=== PATIENT | female | born 1980 | race Caucasian/White ===

== ENCOUNTER 2017-05-30 13:34 | Emergency (ER) | payer OTHER ==
[2017-05-30 14:07] VITALS: BP 132/96
--- NOTE | 2017-05-30 14:48 | ED Physician Documentation ---
Upper Respiratory Symptoms - HPI Stated Complaint: Cough/Congestion Chief Complaint: Cough/ Upper Respiratory Additional Information: cough and congestion past 5 days after flu vaccine. no fever chills n/e or diarrhea feels fairly good. cough prod greenish now whitish material---otc meds = no help Onset: days ago (5) Duration: intermittent episodes Context: denies: recent foreign travel Severity: moderate Associated Symptoms: runny nose. denies: fever, chills, sweating, earache Worsened by Deep Breath: No - ROS CONST/EYES: denies: weakness CVS/RESP: none GI/: none NEURO/PSYCH: denies: fainting, dizziness - PAST HX Lung Disease: none PE Risk Factors: none Surgeries/Procedures: cholecystectomy Allergies/Adverse Reactions: Allergies Allergy/AdvReac Type Severity Reaction Status Date / Time No Known Allergies Allergy Verified 05/30/17 13:48 Home Medications: Ambulatory Orders Medication Instructions Recorded traMADol HCL [Ultram] 50 mg PO Q4H PRN #18 tablet 06/02/16 - SOCIAL HX Smoking History: greater than 1 pack/day Alcohol Use: none Drug Use: none - FAMILY HX Family History: no significant history - VITAL SIGNS Vital Signs: Vital Signs Temp Pulse Resp BP Pulse Ox 98.1 F 88 18 136/80 96 05/30/17 14:00 05/30/17 14:00 05/30/17 14:00 05/30/17 14:00 05/30/17 14:00 - REVIEWED ASSESSMENTS Nursing Assessment Reviewed: Yes Vitals Reviewed: Yes Upper Respiratory Symptoms - EXAM General Appearance: mild distress EENT: eyes nml inspection, nml ENT inspection, conjunctival erythema (slight). No: pale conjunctivae Neck: normal inspection Respiratory: no resp. distress, breath sounds nml Abdomen: non-tender CVS: reg rate & rhythm, heart sounds normal Skin: color nml, no rash, warm,dry. No: cyanosis, diaphoresis, pallor, rash Extremities: non-tender Neuro/Psych: oriented x3 Discharge Clincal Impression: virazl resp infection, vs rxn to flu vaccine Referrals: Lisa Downs [Primary Care Provider] - 2 Days Comments: home claritin or ranitidine plus xs water bal nutrition - f/u w/pcp prn Condition: Good Disposition: 01 HOME, SELF-CARE Decision to Admit: NO Decision Time: 14:32
== END 2017-05-30 14:00 | disposition home or self-care (01) ==
LOC: ED 13:34
DX: J98.8 Other specified respiratory disorders (principal)
CPT/HCPCS: 99283

== ENCOUNTER 2017-09-25 21:32 | Emergency (ER) | payer OTHER ==
--- NOTE | 2017-09-25 21:47 | ED Physician Documentation ---
General Adult - HISTORIAN Historian: patient - HPI Stated Complaint: sore throat and cough Chief Complaint: Sore Throat Onset: other (3 days ) Timing: worse Severity: mild Further Comments: yes (she reports that she has had issues with sinus pain and pressure and she was treated with Augmentin and she reports she did feel better (this was about 2 weeks ago) she states that she had return of sinus drainge, sore throat and cough after 3 days of antibitoic completion. Denies a fever. She has been trying OTC meds. Son has had strep in last week.) Last known Well Code/Unknown Code: Unknown - ROS CONST: recent illness EYES/ENT: none CVS/RESP: shortness of breath, cough GI/: denies: vomiting, nausea MS/SKIN/LYMPH: none NEURO/PSYCH: headache. denies: fainting, dizziness, tingling, numbness - PAST HX Past History: none Other History: none Surgeries/Procedures: other (Gallbladder cesctions x 2 ) Immunizations: UTD Allergies/Adverse Reactions: Allergies Allergy/AdvReac Type Severity Reaction Status Date / Time No Known Allergies Allergy Verified 09/25/17 22:37 Home Medications: Ambulatory Orders Medication Instructions Recorded Cholecalciferol [Vitamin D-3] 1,000 unit PO DAILY 09/25/17 Nabumetone [Relafen] 500 mg PO DIRECTED PRN 09/25/17 - SOCIAL HX Smoking History: cigarettes Alcohol Use: none Drug Use: none - FAMILY HX Family History: No - VITAL SIGNS Vital Signs: Vital Signs Temp Pulse Resp BP Pulse Ox 136/80 05/30/17 14:00 - REVIEWED ASSESSMENTS Nursing Assessment Reviewed: Yes Vitals Reviewed: Yes Progress - Progress Progress: 2245: Lung sound with decrease wheeze post duoneb. Greater inspiratory volume. DG ED Results Lab/Radiology - Radiology Radiology Impressions: PA and lateral chest Clinical history: COUGH/CONGESTION/SORE THROAT Findings: Examination of the chest and PA and lateral views with no prior films for comparison demonstrates the lungs to be clear. Cardiovascular and mediastinal silhouettes are within normal limits. Bony thorax is intact. Impression: 1. No active disease. Electronically signed on Sep 25, 2017 10:35:06 PM GLYCERIN OPERATOR by: Duane Zheng General Adult Physical Exam - PHYSICAL EXAM GENERAL APPEARANCE: no distress EENT: eye inspection normal, pharyngeal erythema, abnormal TM, TM erythema NECK: normal inspection RESPIRATORY: no resp distress, chest non-tender, wheezes CVS: reg rate & rhythm, heart sounds normal, equal pulses, no murmur ABDOMEN: soft, normal bowel sounds BACK: normal inspection EXTREMITIES: non-tender, normal range of motion, no evidence of injury, no edema NEURO: oriented X3, CN's nml as tested, motor nml, sensation nml, mood/affect nml Discharge Clincal Impression: Bronchitis Referrals: Lisa Downs [Primary Care Provider] - 2 Days Comments: 1. Proair from stock - 2 puffs every 4-6 hours as needed for cough. 2. Azithromycin 250 mg daily x 4 (500 mg given in ER) 3. Increase fluids 4. Stop smoking 5. See PCP in 2-4 days 6. return to ER for any concerns Condition: Stable Disposition: 01 HOME, SELF-CARE Decision to Admit: NO Date of Decison to Admit: 09/25/17 Decision Time: 22:51
[2017-09-25] MEDS: IPRATROPIUM/ALBUTEROL SULFATE 3 ML AMPUL.NEB NEB ONE (22:15)
[2017-09-25] MEDS ORDERED: ALBUTEROL SULFATE 200 PUFF INHALER INH PRN (22:46)
[2017-09-25] MEDS: AZITHROMYCIN 250 MG TABLET PO ONE (22:46)
[2017-09-25] MEDS: ALBUTEROL SULFATE 200 PUFF INHALER INH PRN (23:01)
[2017-09-25 23:14] VITALS: BP 130/86
--- NOTE | 2017-09-25 23:21 | Diagnostic Imaging Report ---
MIKE FLOWERS [facility] [address] [facility] [address] [place], [place]. [address] Report Submission Date: Sep 25, 2017 10:35:06 PM SECURITY SYSTEMS ENGINEER Patient Study Name: ANASTACIA BLACKWOOD Date: Sep 25, 2017 10:13:58 PM SECURITY SYSTEMS ENGINEER Modality Type: DX Gender: F Description: CHEST : 80 Institution: [facility] Physician: MIKE FLOWERS PA and lateral chest Clinical history: COUGH/CONGESTION/SORE THROAT Findings: Examination of the chest and PA and lateral views with no prior films for comparison demonstrates the lungs to be clear. Cardiovascular and mediastinal silhouettes are within normal limits. Bony thorax is intact. Impression: 1. No active disease. Electronically signed on Sep 25, 2017 10:35:06 PM SECURITY SYSTEMS ENGINEER by: Duane GRAHAM
== END 2017-09-25 23:05 | disposition home or self-care (01) ==
LOC: ED 21:32
DX: J02.9 Acute pharyngitis, unspecified (principal); R05 Cough
CPT/HCPCS: 71046; 87070; 87880; 94640; 99283

== ENCOUNTER 2018-11-07 17:38 | Emergency (ER) | payer OTHER ==
--- NOTE | 2018-11-07 18:04 | ED Physician Documentation ---
Upper Respiratory Symptoms - HISTORIAN Historian: patient - HPI Stated Complaint: CC, fever Chief Complaint: Cough/ Upper Respiratory Additional Information: Patient presents to ED with a 2 week history of cough, sinus congestion and sore throat. She admits to low grade fevers occasionally. Onset: days ago (14) Duration: intermittent episodes Context: denies: recent foreign travel Severity: moderate Associated Symptoms: fever, runny nose, sinus pain, sinus drainage, sore throat, hoarseness. denies: chest pain, shortness of breath Worsened by Deep Breath: No Further Comments: no - ROS CONST/EYES: denies: weakness CVS/RESP: denies: chest pain, shortness of breath LYMPH: denies: rash GI/: denies: vomiting, nausea NEURO/PSYCH: denies: fainting MS/SKIN: denies: muscle aches - PAST HX Lung Disease: none PE Risk Factors: none Surgeries/Procedures: none Allergies/Adverse Reactions: Allergies Allergy/AdvReac Type Severity Reaction Status Date / Time No Known Allergies Allergy Verified 11/07/18 17:51 Home Medications: Ambulatory Orders Medication Instructions Recorded Hydrochlorothiazide [Hydrodiuril] 25 mg PO DAILY 11/07/18 - SOCIAL HX Smoking History: cigarettes, greater than 1 pack/day Alcohol Use: none Drug Use: none - FAMILY HX Family History: none - VITAL SIGNS Vital Signs: Vital Signs Temp Pulse Resp BP Pulse Ox 99.0 F 106 H 20 119/95 98 11/07/18 17:39 11/07/18 17:39 11/07/18 17:39 11/07/18 17:39 11/07/18 17:39 - REVIEWED ASSESSMENTS Nursing Assessment Reviewed: Yes Vitals Reviewed: Yes Upper Respiratory Symptoms - EXAM General Appearance: no acute distress, alert EENT: pain over sinuses, frontal, maxillary Neck: normal inspection, supple Respiratory: no resp. distress, breath sounds nml, no pain on inspiration, respiratory distress Abdomen: non-tender, nml bowel sounds CVS: reg rate & rhythm, heart sounds normal Skin: color nml, no rash Extremities: non-tender, no edema Neuro/Psych: oriented x3, mood/affect nml Discharge Clincal Impression: Acute pansinusitis Qualifiers: Recurrence: non-recurrent Qualified Code(s): J01.40 - Acute pansinusitis, unspecified Referrals: Lisa Downs [Primary Care Provider] - 2 Days Additional Instructions: 1. Tylenol and/or Ibuprofen as needed for pain/fever 2. Take antibiotic until gone 3. Take Mucinex daily to help thin secretions. Drink plenty of water with this medication 4. Adding a daily antihistamine such as Claritin, Zyrtec or [place] may be beneficial 5. Follow up with PCP within 1 week 6. Return to ER for new or worsening symptoms Condition: Stable Disposition: 01 HOME, SELF-CARE Decision to Admit: NO Date of Decison to Admit: 11/07/18 Decision Time: 18:07
[2018-11-07 18:15] VITALS: BP 120/94
== END 2018-11-07 18:11 | disposition home or self-care (01) ==
LOC: ED 17:38
DX: J01.40 Acute pansinusitis, unspecified (principal); Z72.0 Tobacco use
CPT/HCPCS: 99281; 99282